=== PATIENT | female | born 1990 | race Caucasian/White ===

== ENCOUNTER 2018-11-24 17:59 | Emergency (ER) | payer SELFPAY ==
[~2018-11-24] VITALS: Ht 162.6 cm; Wt 84.8 kg
[2018-11-24 18:12] VITALS: BP 130/83
[2018-11-24] MEDS ORDERED: NAPROXEN 250 MG TABLET PO ONE (19:30)
[2018-11-24] MEDS ORDERED: NAPROXEN 250 MG TABLET ONE (19:39)
== END 2018-11-24 19:40 | disposition home or self-care (01) ==
LOC: ER 18:02
DX: M54.6 Pain in thoracic spine (principal); M54.5 Low back pain; F41.9 Anxiety disorder, unspecified; F43.10 Post-traumatic stress disorder, unspecified; V49.49XA Driver injured in collision with other motor vehicles in traffic accident, initial encounter; Y93.89 Activity, other specified; Y92.413 State road as the place of occurrence of the external cause; Y99.8 Other external cause status